=== PATIENT | male | born 1975 | race African-American/Black ===

== ENCOUNTER 2021-04-25 10:27 | Emergency (ER) | payer BC, OTHER ==
[2021-04-25 21:58] LABS: SARS-CoV-2 PCR by NAA Not Detected (NotDetected)
== END 2021-04-25 11:40 | disposition home or self-care (01) ==
LOC: CSHERS 10:27
DX: U07.1 COVID-19 (principal); I10 Essential (primary) hypertension; E78.5 Hyperlipidemia, unspecified; F17.210 Nicotine dependence, cigarettes, uncomplicated; Z79.899 Other long term (current) drug therapy
CPT/HCPCS: 71045; U0003; U0005

== ENCOUNTER 2021-05-12 18:23 | Inpatient (IN) | payer BC ==
[~2021-05-12 18:23] MED LIST: Calcium Chloride 1 GM/10 ML Abboject SYRINGE ONE; EPINEPHrine 1 MG/10 ML Abboject SYRINGE ONE; Sodium Bicarb 50 MEQ/50 ML Abboject 8.4% SYRINGE ONE
[2021-05-12] MEDS ORDERED: EPINEPHrine 1 MG/ML AMP ONE (18:56)
[2021-05-12 19:33] LABS: #Basophils 0.1 10x3/uL (0.0-0.2); #Eosinphils 0.4 10x3/uL (0.0-0.5); #Monocytes 1.6 10x3/uL (0.0-1.1); #Neutrophils 6.7 10x3/uL (1.5-8.4); %Basophils 0.7 % (0.0-2.0); %Eosinophils 3.5 % (0.0-6.0); %Lymphocytes 25.9 % (18.0-47.0); %Monocytes 13.2 % (0.0-10.0); %Neutrophils 55.1 % (40.0-75.0); Hemoglobin 15.9 g/dL (13.5-17.5); Mean Corpuscular HGB CONC 32.1 g/dL (32.0-36.0); Mean Corpuscular Hemoglobin 29.5 pg (27.0-33.0); Mean Platelet Volume 11.7 fl (7.4-10.4); Platelet Count 173 10x3/uL (150-450); RBC Distribution Width 14.3 % (11.5-14.5); Red Blood Cell (RBC) Count 5.39 10x6/uL (4.32-5.72); White Blood Cell (WBC) Count 12.1 10x3/uL (3.5-10.5)
[2021-05-12 19:44] LABS: ALV-art Gradient 591.725 mmHg (0-20); Base Excess (BEa) -0.1 mEq/L (-2.0 to +3.0); CO2 Tension 29.1 mmHg (35.0-45.0); Calcium, Ionized (arterial) 1.33 mmol/L (1.12-1.30); Carboxyhemoglobin (COHb) 0.8 gm% (0.0-3.0); Hemoglobin (Hb) 13.9 g/dL (14.0-18.0); O2 Tension (PaO2), arterial 84.9 mmHg (80.0-100.0); Potassium - ABG Lab 4.3 mmol/L (3.70-5.30); Puncture Site RRA
[2021-05-12] MEDS ORDERED: Midazolam In 0.9 % NaCl/PF 100 ML IVPB SCH (19:45)
[2021-05-12 19:49] LABS: ALT (SGPT) 532 U/L (8-55); AST (SGOT) 434 U/L (5-34); Albumin 3.3 g/dL (3.5-5.0); Alkaline Phosphatase 379 U/L (40-110); Anion Gap 21 mmol/L (10-20); BUN (Urea Nitrogen) 25 mg/dL (8.9-20.6); Bilirubin, Total 3.3 mg/dL (0.2-1.2); Calc. Creatinine Clearance 0 mL/min (70-130); Calcium 8.8 mg/dL (7.8-10.44); Carbon Dioxide 18 mmol/L (22-29); Chloride 101 mmol/L (98-107); Globulin 3.5 g/dL (2.4-3.5); Glucose 124 mg/dL (70-105); Magnesium 2.5 mg/dL (1.6-2.6); Protein, Total 6.8 g/dL (6.0-8.3); Sodium 135 mmol/L (136-145)
[2021-05-12] MEDS ORDERED: levETIRAcetam in NS 200 ML ONE (20:01)
[2021-05-12 20:10] LABS: CKMB 5.9 ng/mL (0-6.6)
[2021-05-12 21:37] LABS: SARS-CoV-2 NAA Rapid Test Not Detected (NotDetected)
[2021-05-12] MEDS ORDERED: Furosemide 100 MG/10 ML VIAL SLOW IVP SCH (22:45)
[2021-05-12 23:31] LABS: Magnesium 2.2 mg/dL (1.6-2.6)
[2021-05-12 23:36] LABS: Troponin I 0.169 ng/mL (< 0.028)
[2021-05-12 23:49] LABS: INR-International Normal Ratio 1.3; PTT 25.9 sec (22.0-33.0); Prothrombin Time 14.7 sec (9.5-12.1)
[2021-05-13] MEDS ORDERED: Hydrocortisone Sod Succ/PF 100 mg/2 ml Vial IVP SCH (00:45)
[2021-05-13] MEDS ORDERED: Fentanyl BOLUS 250 ML IVPB PRN (00:45)
[2021-05-13] MEDS ORDERED: Morphine 2 MG/ML VIAL SLOW IVP PRN (00:45)
[2021-05-13] MEDS ORDERED: Propofol BOLUS 1,000 MG/100 ML VIAL IV PRN (00:45)
[2021-05-13] MEDS ORDERED: Vasopressin 20 UNIT, Admixture Fee 1 EACH in Sodium Chloride 0.9% 50 ML IV SCH (00:45)
[2021-05-13] MEDS ORDERED: Norepinephrine 8 MG/0.9% NS 250 ML IVPB SCH (00:45)
[2021-05-13] MEDS ORDERED: Lorazepam 2 MG/ML VIAL SLOW IVP PRN (00:45)
[2021-05-13] MEDS ORDERED: DISCONTINUE PREVIOUS NARCOTIC PAIN MEDICATIONS AND BENZODIAZEPINES FS SCH (00:45)
[2021-05-13] MEDS: Cefepime 2 GM in Sodium Chloride 0.9% 100 ML IVPB SCH ×4 (00:57→21:39)
[2021-05-13] MEDS: Propofol 1,000 MG/100 ML VIAL IV PRN ×3 (03:00→18:15)
[2021-05-13 03:51] LABS: #Basophils 0.1 10x3/uL (0.0-0.2); #Eosinphils 0.2 10x3/uL (0.0-0.5); #Monocytes 0.6 10x3/uL (0.0-1.1); #Neutrophils 6.9 10x3/uL (1.5-8.4); %Basophils 0.5 % (0.0-2.0); %Eosinophils 2.1 % (0.0-6.0); %Lymphocytes 15.1 % (18.0-47.0); %Neutrophils 74.9 % (40.0-75.0); Hemoglobin 13.8 g/dL (13.5-17.5); Mean Corpuscular HGB CONC 32.9 g/dL (32.0-36.0); Mean Corpuscular Hemoglobin 29.7 pg (27.0-33.0); Mean Corpuscular Volume 90.1 fl (81.2-95.1); Mean Platelet Volume 11.8 fl (7.4-10.4); Platelet Count 198 10x3/uL (150-450); RBC Distribution Width 14.2 % (11.5-14.5); Red Blood Cell (RBC) Count 4.65 10x6/uL (4.32-5.72); White Blood Cell (WBC) Count 9.2 10x3/uL (3.5-10.5)
[2021-05-13 03:59] LABS: Lactic Acid 1.7 mmol/L (0.5-2.2)
[2021-05-13 04:02] LABS: Anion Gap 15 mmol/L (10-20); BUN (Urea Nitrogen) 27 mg/dL (8.9-20.6); Calc. Creatinine Clearance 116 mL/min (70-130); Calcium 9.1 mg/dL (7.8-10.44); Carbon Dioxide 29 mmol/L (22-29); Chloride 98 mmol/L (98-107); Glucose 207 mg/dL (70-105); Potassium 4.2 mmol/L (3.5-5.1); Sodium 138 mmol/L (136-145)
[2021-05-13] MEDS ORDERED: FLU VACC QS2021-22(6MOS UP)/PF 60 MCG/0.5 ML SYRINGE IM ONE (04:30)
[2021-05-13 04:40] LABS: ALV-art Gradient 368.275 mmHg (0-20); Actual Bicarbonate (HCO3a) 26.2 mEq/L (22-28); Base Excess (BEa) 3.5 mEq/L (-2.0 to +3.0); CO2 Tension 33.7 mmHg (35.0-45.0); Calcium, Ionized (arterial) 1.09 mmol/L (1.12-1.30); Carboxyhemoglobin (COHb) 0.6 gm% (0.0-3.0); Hemoglobin (Hb) 14.5 g/dL (14.0-18.0); Potassium - ABG Lab 3.9 mmol/L (3.70-5.30); Puncture Site RRA; pH, Arterial 7.51 (7.35-7.45)
[2021-05-13] MEDS: fentaNYL Citrate-0.9 % NaCl/PF 100 ML IVPB SCH ×2 (05:11→18:15)
[2021-05-13] MEDS ORDERED: Furosemide 100 MG/10 ML VIAL SLOW IVP SCH ×2 (06:00→07:00)
[2021-05-13] MEDS: Enoxaparin Sodium 120 MG/0.8 ML SYRINGE SC SCH ×3 (07:43→21:39)
[2021-05-13] MEDS: Hydrocortisone Sod Succ/PF 100 mg/2 ml Vial IVP SCH ×3 (07:43→18:07)
[2021-05-13 07:47] LABS: ALT (SGPT) 486 U/L (8-55); AST (SGOT) 370 U/L (5-34); Alkaline Phosphatase 317 U/L (40-110); Bilirubin, Direct 1.8 mg/dL (0.1-0.3); Bilirubin, Total 3.9 mg/dL (0.2-1.2); Protein, Total 5.7 g/dL (6.0-8.3)
[2021-05-13] MEDS ORDERED: Enoxaparin Sodium 80 MG/0.8 ML SYRINGE SC SCH (09:00)
[2021-05-13] MEDS ORDERED: Furosemide 100 MG in Sodium Chloride 0.9% 100 ML IVPB SCH (09:00)
[2021-05-13] MEDS ORDERED: levETIRAcetam 500 MG in Sodium Chloride 0.9% 100 ML IVPB SCH (09:00)
[2021-05-13] MEDS ORDERED: Furosemide 40 MG/4 ML VIAL SLOW IVP SCH (09:00)
[2021-05-13] MEDS ORDERED: Sodium Chloride 0.9% 100 ML ONE (09:10)
[2021-05-13 10:10] LABS: Troponin I 0.114 ng/mL (< 0.028)
[2021-05-13] MEDS ORDERED: VANCOMYCIN 2 GRAM/400 ML BAG 2 GM in Premix Bag 1 BAG IVPB SCH (11:30)
[2021-05-13 11:58] LABS: Acetaminophen Less than 6.0 mcg/mL (10.0-30.0); Alcohol Less than 10 mg/dL (Less than 10); Salicylate Less than 8.0 mg/dL (15.0-30.0)
[2021-05-13 12:16] LABS: Thyroid Stimulating Hormone 0.903 uIU/mL (0.35-4.94)
[2021-05-13 12:17] LABS: Syphilis Antibody Nonreactive (Nonreactive); Syphilis Antibody Index 0.04 S/CO (<1.00 Non-Reactive)
[2021-05-13 15:05] LABS: Amphetamine Not Detected (NotDetected); Barbiturates Screen Not Detected (NotDetected); Benzodiazepine Screen Not Detected (NotDetected); Cocaine Metabolite Screen Not Detected (NotDetected); Legionella Urinary Ag Negative (Negative); Methadone Not Detected (NotDetected); Methamphetamine Not Detected (NotDetected); Opiate Screen Not Detected (NotDetected); Oxycodone Screen Not Detected (NotDetected); Phencyclidine (PCP) Not Detected (NotDetected); Strep pneumo Urine Ag NEGATIVE (NEGATIVE); THC/Cannabinoid Screen Not Detected (NotDetected); Tricyclic Screen Not Detected (NotDetected)
[2021-05-13] MEDS: Furosemide 40 MG/4 ML VIAL SLOW IVP SCH (21:40)
[2021-05-13] MEDS: Famotidine 20 MG TAB PER TUBE SCH (21:40)
[2021-05-13] MEDS: Vancomycin 1.5 GRAM/300 ML BAG 1.5 GM in Premix Bag 1 BAG IVPB SCH (23:30)
[2021-05-14] MEDS: Hydrocortisone Sod Succ/PF 100 mg/2 ml Vial IVP SCH ×5 (00:03→23:59)
[2021-05-14] MEDS: Propofol 1,000 MG/100 ML VIAL IV PRN ×5 (01:19→22:34)
[2021-05-14] MEDS ORDERED: Metoprolol Tartrate 5 MG/5 ML VIAL IVP SCH ×2 (04:15→14:45)
[2021-05-14 04:33] LABS: #Monocytes 1.4 10x3/uL (0.0-1.1); #Neutrophils 10.8 10x3/uL (1.5-8.4); %Basophils 0.2 % (0.0-2.0); %Lymphocytes 5.5 % (18.0-47.0); %Monocytes 10.7 % (0.0-10.0); %Neutrophils 83.1 % (40.0-75.0); Hemoglobin 13.6 g/dL (13.5-17.5); Mean Corpuscular Hemoglobin 29.9 pg (27.0-33.0); Mean Corpuscular Volume 93.4 fl (81.2-95.1); Mean Platelet Volume 11.2 fl (7.4-10.4); Platelet Count 210 10x3/uL (150-450); RBC Distribution Width 14.5 % (11.5-14.5); Red Blood Cell (RBC) Count 4.55 10x6/uL (4.32-5.72)
[2021-05-14 04:53] LABS: ALT (SGPT) 355 U/L (8-55); AST (SGOT) 119 U/L (5-34); Albumin 2.8 g/dL (3.5-5.0); Alkaline Phosphatase 243 U/L (40-110); Anion Gap 14 mmol/L (10-20); BUN (Urea Nitrogen) 23 mg/dL (8.9-20.6); Bilirubin, Total 2.1 mg/dL (0.2-1.2); Calc. Creatinine Clearance 125 mL/min (70-130); Calcium 8.4 mg/dL (7.8-10.44); Carbon Dioxide 33 mmol/L (22-29); Chloride 103 mmol/L (98-107); Globulin 3.2 g/dL (2.4-3.5); Glucose 139 mg/dL (70-105); Magnesium 2.2 mg/dL (1.6-2.6); Phosphorus 4.8 mg/dL (2.3-4.7); Potassium 3.6 mmol/L (3.5-5.1); Sodium 146 mmol/L (136-145)
[2021-05-14 04:59] LABS: Troponin I 0.054 ng/mL (< 0.028)
[2021-05-14] MEDS: Cefepime 2 GM in Sodium Chloride 0.9% 100 ML IVPB SCH ×3 (05:25→20:40)
[2021-05-14] MEDS: fentaNYL Citrate-0.9 % NaCl/PF 100 ML IVPB SCH (05:57)
[2021-05-14] MEDS ORDERED: Diltiazem 125 MG in Sodium Chloride 0.9% 100 ML IVPB SCH ×2 (08:45→09:30)
[2021-05-14] MEDS: Enoxaparin Sodium 120 MG/0.8 ML SYRINGE SC SCH ×2 (09:02→20:40)
[2021-05-14] MEDS: Famotidine 20 MG TAB PER TUBE SCH ×2 (09:03→20:40)
[2021-05-14] MEDS: Furosemide 40 MG/4 ML VIAL SLOW IVP SCH ×2 (09:03→20:40)
[2021-05-14] MEDS ORDERED: Potassium Chloride 20 MEQ TAB PO SCH (10:30)
[2021-05-14] MEDS ORDERED: Carvedilol 6.25 MG TAB PO SCH (10:30)
[2021-05-14] MEDS ORDERED: Potassium Bicarbonate/Cit Ac 20 MEQ TAB PO SCH (10:45)
[2021-05-14] MEDS: Vancomycin 1.5 GRAM/300 ML BAG 1.5 GM in Premix Bag 1 BAG IVPB SCH (10:56)
[2021-05-14 12:42] LABS: Hep C IgG Ab Non-Reactive (NonReactive); Hep C Index 0.18 S/CO (0-0.79)
[2021-05-14 15:30] LABS: SARS-CoV-2 PCR by NAA Not Detected (NotDetected)
[2021-05-14] MEDS ORDERED: Digoxin 0.5 MG/2 ML AMP SLOW IVP SCH (16:30)
[2021-05-14] MEDS: Carvedilol 6.25 MG TAB PO SCH (17:07)
[2021-05-14] MEDS ORDERED: Metoprolol Tartrate 5 MG/5 ML VIAL IVP PRN (20:59)
[2021-05-14 22:56] LABS: Vancomycin, Trough 10.4 ug/mL
[2021-05-15] MEDS: Vancomycin 1.5 GRAM/300 ML BAG 1.5 GM in Premix Bag 1 BAG IVPB SCH
[2021-05-15] MEDS: Propofol 1,000 MG/100 ML VIAL IV PRN ×2 (02:30→07:18)
[2021-05-15 03:40] LABS: #Monocytes 1.2 10x3/uL (0.0-1.1); #Neutrophils 8.8 10x3/uL (1.5-8.4); %Basophils 0.1 % (0.0-2.0); %Lymphocytes 8.7 % (18.0-47.0); %Monocytes 11.1 % (0.0-10.0); %Neutrophils 79.8 % (40.0-75.0); Hemoglobin 13.5 g/dL (13.5-17.5); Mean Corpuscular HGB CONC 31.9 g/dL (32.0-36.0); Mean Corpuscular Hemoglobin 29.9 pg (27.0-33.0); Mean Corpuscular Volume 93.8 fl (81.2-95.1); Mean Platelet Volume 10.8 fl (7.4-10.4); Platelet Count 205 10x3/uL (150-450); RBC Distribution Width 14.6 % (11.5-14.5); Red Blood Cell (RBC) Count 4.51 10x6/uL (4.32-5.72)
[2021-05-15 04:04] LABS: ALT (SGPT) 251 U/L (8-55); AST (SGOT) 60 U/L (5-34); Albumin 2.9 g/dL (3.5-5.0); Alkaline Phosphatase 220 U/L (40-110); Anion Gap 14 mmol/L (10-20); BUN (Urea Nitrogen) 23 mg/dL (8.9-20.6); Bilirubin, Total 1.5 mg/dL (0.2-1.2); Calc. Creatinine Clearance 132 mL/min (70-130); Calcium 8.3 mg/dL (7.8-10.44); Carbon Dioxide 34 mmol/L (22-29); Chloride 101 mmol/L (98-107); Globulin 3.2 g/dL (2.4-3.5); Glucose 149 mg/dL (70-105); Magnesium 2.4 mg/dL (1.6-2.6); Phosphorus 3.3 mg/dL (2.3-4.7); Potassium 3.1 mmol/L (3.5-5.1); Protein, Total 6.1 g/dL (6.0-8.3); Sodium 146 mmol/L (136-145)
[2021-05-15] MEDS: Hydrocortisone Sod Succ/PF 100 mg/2 ml Vial IVP SCH ×4 (05:34→23:52)
[2021-05-15] MEDS: Cefepime 2 GM in Sodium Chloride 0.9% 100 ML IVPB SCH ×3 (05:34→21:24)
[2021-05-15] MEDS ORDERED: Potassium Chloride 20 MEQ TAB PO SCH (06:15)
[2021-05-15] MEDS: Carvedilol 6.25 MG TAB PO SCH (07:41)
[2021-05-15] MEDS: Furosemide 40 MG/4 ML VIAL SLOW IVP SCH ×2 (07:42→21:24)
[2021-05-15] MEDS: Famotidine 20 MG TAB PER TUBE SCH ×2 (07:42→21:23)
[2021-05-15] MEDS: Enoxaparin Sodium 120 MG/0.8 ML SYRINGE SC SCH ×2 (07:42→21:23)
[2021-05-15] MEDS: Potassium Bicarbonate/Cit Ac 20 MEQ TAB PO SCH ×2 (07:46→07:47)
[2021-05-15 09:11] LABS: Actual Bicarbonate (HCO3a) 35.4 mEq/L (22-28); Base Excess (BEa) 10.5 mEq/L (-2.0 to +3.0); CO2 Tension 47.1 mmHg (35.0-45.0); Calcium, Ionized (arterial) 1.09 mmol/L (1.12-1.30); Carboxyhemoglobin (COHb) 0.5 gm% (0.0-3.0); Hemoglobin (Hb) 15.3 g/dL (14.0-18.0); O2 Tension (PaO2), arterial 94.1 mmHg (80.0-100.0); Potassium - ABG Lab 3.9 mmol/L (3.70-5.30); Puncture Site RRA; pH, Arterial 7.49 (7.35-7.45)
[2021-05-15 09:16] LABS: ALV-art Gradient 60.925 mmHg (0-20)
[2021-05-15] MEDS ORDERED: Digoxin 0.5 MG/2 ML AMP SLOW IVP SCH ×3 (09:30→13:30)
[2021-05-15] MEDS: VANCOMYCIN 2 GRAM/400 ML BAG 2 GM in Premix Bag 1 BAG IVPB SCH ×2 (12:23→23:50)
[2021-05-15] MEDS: Dexmedetomidine In 0.9 % NaCl 400 MCG in Premix Bag 1 BAG IVPB SCH ×3 (12:31→21:24)
[2021-05-15] MEDS ORDERED: hydrALAZINE 20 MG/ML VIAL SLOW IVP SCH (15:00)
[2021-05-15] MEDS: Carvedilol 12.5 MG TAB PO SCH (15:30)
[2021-05-15] MEDS ORDERED: hydrALAZINE 20 MG/ML VIAL SLOW IVP PRN (15:33)
[2021-05-15] MEDS ORDERED: Morphine 4 MG/ML VIAL SLOW IVP PRN (23:54)
[2021-05-16] MEDS: Dexmedetomidine In 0.9 % NaCl 400 MCG in Premix Bag 1 BAG IVPB SCH ×2 (01:59→06:24)
[2021-05-16 04:52] LABS: #Monocytes 1.3 10x3/uL (0.0-1.1); #Neutrophils 7.5 10x3/uL (1.5-8.4); %Basophils 0.2 % (0.0-2.0); %Lymphocytes 11.6 % (18.0-47.0); %Monocytes 12.9 % (0.0-10.0); %Neutrophils 74.9 % (40.0-75.0); Hemoglobin 15.6 g/dL (13.5-17.5); Mean Corpuscular HGB CONC 31.4 g/dL (32.0-36.0); Mean Corpuscular Hemoglobin 29.4 pg (27.0-33.0); Mean Corpuscular Volume 93.6 fl (81.2-95.1); Mean Platelet Volume 10.6 fl (7.4-10.4); Platelet Count 221 10x3/uL (150-450); RBC Distribution Width 13.3 % (11.5-14.5); Red Blood Cell (RBC) Count 5.31 10x6/uL (4.32-5.72)
[2021-05-16] MEDS: Hydrocortisone Sod Succ/PF 100 mg/2 ml Vial IVP SCH ×3 (05:17→21:25)
[2021-05-16] MEDS: Cefepime 2 GM in Sodium Chloride 0.9% 100 ML IVPB SCH (05:17)
[2021-05-16 05:28] LABS: ALT (SGPT) 202 U/L (8-55); AST (SGOT) 47 U/L (5-34); Albumin 3.2 g/dL (3.5-5.0); Alkaline Phosphatase 223 U/L (40-110); Anion Gap 15 mmol/L (10-20); BUN (Urea Nitrogen) 20 mg/dL (8.9-20.6); Bilirubin, Total 2.2 mg/dL (0.2-1.2); Calc. Creatinine Clearance 138 mL/min (70-130); Calcium 8.6 mg/dL (7.8-10.44); Carbon Dioxide 34 mmol/L (22-29); Chloride 103 mmol/L (98-107); Glucose 192 mg/dL (70-105); Magnesium 2.3 mg/dL (1.6-2.6); Phosphorus 2.1 mg/dL (2.3-4.7); Potassium 2.9 mmol/L (3.5-5.1); Protein, Total 7.2 g/dL (6.0-8.3); Sodium 149 mmol/L (136-145)
[2021-05-16] MEDS: Potassium Bicarbonate/Cit Ac 20 MEQ TAB PER TUBE SCH ×2 (06:02→09:41)
[2021-05-16] MEDS: Furosemide 40 MG/4 ML VIAL SLOW IVP SCH ×2 (08:57→21:25)
[2021-05-16] MEDS: Enoxaparin Sodium 120 MG/0.8 ML SYRINGE SC SCH ×2 (08:57→21:26)
[2021-05-16] MEDS: Famotidine 20 MG TAB PER TUBE SCH ×2 (08:58→21:25)
[2021-05-16] MEDS: Carvedilol 25 MG TAB PO SCH ×2 (08:59→16:05)
[2021-05-16] MEDS: Sacubitril 49 MG/Valsartan 51 MG TABLET PO SCH ×2 (08:59→21:25)
[2021-05-16] MEDS: Potassium Chloride 40 MEQ in Premix Bag 1 BAG IVPB SCH ×2 (08:59→09:36)
[2021-05-16] MEDS ORDERED: Digoxin 0.125 MG TAB PO SCH (10:00)
[2021-05-16 11:13] LABS: Hep B Surface AG-Rflx Sendout Negative (Negative); Hepatitis B Core Total Negative (Negative); Hepatitis B Surface AB-Sendout Non Reactive (.)
[2021-05-17 06:29] LABS: #Monocytes 0.9 10x3/uL (0.0-1.1); #Neutrophils 7.7 10x3/uL (1.5-8.4); %Basophils 0.1 % (0.0-2.0); %Lymphocytes 12.6 % (18.0-47.0); %Monocytes 9.2 % (0.0-10.0); %Neutrophils 77.7 % (40.0-75.0); Mean Corpuscular HGB CONC 31.4 g/dL (32.0-36.0); Mean Corpuscular Volume 92.3 fl (81.2-95.1); Mean Platelet Volume 11.1 fl (7.4-10.4); Platelet Count 220 10x3/uL (150-450); RBC Distribution Width 13.2 % (11.5-14.5); Red Blood Cell (RBC) Count 5.17 10x6/uL (4.32-5.72); White Blood Cell (WBC) Count 9.9 10x3/uL (3.5-10.5)
[2021-05-17 07:00] LABS: ALT (SGPT) 149 U/L (8-55); AST (SGOT) 46 U/L (5-34); Albumin 2.8 g/dL (3.5-5.0); Alkaline Phosphatase 169 U/L (40-110); Anion Gap 13 mmol/L (10-20); BUN (Urea Nitrogen) 23 mg/dL (8.9-20.6); Calc. Creatinine Clearance 176 mL/min (70-130); Calcium 8.3 mg/dL (7.8-10.44); Carbon Dioxide 36 mmol/L (22-29); Chloride 96 mmol/L (98-107); Globulin 3.5 g/dL (2.4-3.5); Glucose 146 mg/dL (70-105); Magnesium 2.3 mg/dL (1.6-2.6); Phosphorus 3.1 mg/dL (2.3-4.7); Potassium 2.6 mmol/L (3.5-5.1); Protein, Total 6.3 g/dL (6.0-8.3); Sodium 142 mmol/L (136-145)
[2021-05-17] MEDS ORDERED: Potassium Chloride 20 MEQ TAB PO SCH ×4 (07:30→15:00)
[2021-05-17] MEDS ORDERED: Electrolyte Replacement Protocol FS PRN (07:30)
[2021-05-17] MEDS ORDERED: ALPRAZolam 0.25 MG TAB PO PRN (07:45)
[2021-05-17] MEDS ORDERED: Communication Order-Pharmacy FS SCH (08:00)
[2021-05-17] MEDS: Hydrocortisone Sod Succ/PF 100 mg/2 ml Vial IVP SCH ×2 (09:03→21:18)
[2021-05-17] MEDS: Enoxaparin Sodium 120 MG/0.8 ML SYRINGE SC SCH (09:04)
[2021-05-17] MEDS: Furosemide 40 MG/4 ML VIAL SLOW IVP SCH ×2 (09:04→21:18)
[2021-05-17] MEDS: Carvedilol 25 MG TAB PO SCH ×2 (09:04→16:35)
[2021-05-17] MEDS: Famotidine 20 MG TAB PER TUBE SCH ×2 (09:05→21:18)
[2021-05-17] MEDS: Potassium Chloride 20 MEQ TAB PO SCH ×2 (09:05→16:35)
[2021-05-17] MEDS: Digoxin 0.125 MG TAB PO SCH (09:05)
[2021-05-17] MEDS: Potassium Chloride 40 MEQ in Premix Bag 1 BAG IVPB SCH ×2 (09:06→09:53)
[2021-05-17] MEDS: Sacubitril 49 MG/Valsartan 51 MG TABLET PO SCH ×2 (09:06→21:18)
[2021-05-17 13:39] LABS: Potassium 3.1 mmol/L (3.5-5.1)
[2021-05-18 03:35] LABS: #Monocytes 0.7 10x3/uL (0.0-1.1); #Neutrophils 7.4 10x3/uL (1.5-8.4); %Basophils 0.1 % (0.0-2.0); %Eosinophils 0.1 % (0.0-6.0); %Lymphocytes 12.6 % (18.0-47.0); %Monocytes 7.8 % (0.0-10.0); %Neutrophils 79.1 % (40.0-75.0); Hemoglobin 15.1 g/dL (13.5-17.5); Mean Corpuscular Hemoglobin 29.1 pg (27.0-33.0); Mean Corpuscular Volume 90.9 fl (81.2-95.1); Mean Platelet Volume 10.7 fl (7.4-10.4); Platelet Count 204 10x3/uL (150-450); RBC Distribution Width 12.7 % (11.5-14.5); Red Blood Cell (RBC) Count 5.19 10x6/uL (4.32-5.72); White Blood Cell (WBC) Count 9.4 10x3/uL (3.5-10.5)
[2021-05-18 04:13] LABS: INR-International Normal Ratio 1.2; PTT 29.3 sec (22.0-33.0); Prothrombin Time 13.3 sec (9.5-12.1)
[2021-05-18 04:18] LABS: ALT (SGPT) 112 U/L (8-55); AST (SGOT) 33 U/L (5-34); Albumin 2.7 g/dL (3.5-5.0); Alkaline Phosphatase 146 U/L (40-110); Anion Gap 11 mmol/L (10-20); BUN (Urea Nitrogen) 22 mg/dL (8.9-20.6); Bilirubin, Total 1.3 mg/dL (0.2-1.2); Calc. Creatinine Clearance 176 mL/min (70-130); Calcium 8.1 mg/dL (7.8-10.44); Carbon Dioxide 33 mmol/L (22-29); Chloride 97 mmol/L (98-107); Globulin 3.6 g/dL (2.4-3.5); Glucose 171 mg/dL (70-105); Magnesium 2.1 mg/dL (1.6-2.6); Phosphorus 2.9 mg/dL (2.3-4.7); Potassium 3.2 mmol/L (3.5-5.1); Protein, Total 6.3 g/dL (6.0-8.3); Sodium 138 mmol/L (136-145)
[2021-05-18] MEDS ORDERED: Potassium Chloride 40 MEQ in Premix Bag 1 BAG IVPB SCH (06:00)
[2021-05-18] MEDS ORDERED: Nitroglycerin 50 MG/250 ML BOT 250 ML ONE (07:25)
[2021-05-18] MEDS ORDERED: Heparin 10,000 UNITS/ 10 ML VIAL ONE (07:26)
[2021-05-18] MEDS ORDERED: Verapamil 5 MG/2 ML VIAL ONE (07:26)
[2021-05-18] MEDS ORDERED: Adenosine 6 MG/2 ML VIAL ONE (07:27)
[2021-05-18] MEDS ORDERED: Bivalirudin 250 MG VIAL ONE (07:27)
[2021-05-18] MEDS ORDERED: Lidocaine 1% PF 5 ML VIAL ONE (07:51)
[2021-05-18] MEDS: Hydrocortisone Sod Succ/PF 100 mg/2 ml Vial IVP SCH (07:52)
[2021-05-18] MEDS: Furosemide 40 MG/4 ML VIAL SLOW IVP SCH ×2 (07:52→20:44)
[2021-05-18] MEDS: Carvedilol 25 MG TAB PO SCH ×2 (07:52→17:04)
[2021-05-18] MEDS ORDERED: Lidocaine 1% (PF) 30 ML VIAL ONE (07:52)
[2021-05-18] MEDS ORDERED: Midazolam HCl 5 mg/5 ml Vial ONE (08:25)
[2021-05-18] MEDS ORDERED: Fentanyl 100 MCG/2 ML VIAL ONE (08:27)
[2021-05-18] MEDS ORDERED: Sodium Chloride 0.9% 200 ML IV PRN (08:54)
[2021-05-18] MEDS ORDERED: Acetaminophen/Codeine 30-300mg Tablet PO PRN ×2 (08:54)
[2021-05-18] MEDS ORDERED: Nitroglycerin 0.4 MG TAB (25 Tab Bottle) SL PRN (08:54)
[2021-05-18] MEDS: Sacubitril 49 MG/Valsartan 51 MG TABLET PO SCH ×2 (09:43→20:44)
[2021-05-18] MEDS: Potassium Chloride 20 MEQ TAB PO SCH ×2 (10:02→17:04)
[2021-05-18] MEDS: Famotidine 20 MG TAB PER TUBE SCH ×2 (10:03→20:44)
[2021-05-18] MEDS: Digoxin 0.125 MG TAB PO SCH (10:03)
[2021-05-18 10:42] LABS: Potassium 2.2 mmol/L (3.5-5.1)
[2021-05-18] MEDS ORDERED: Spironolactone 25 MG TAB PO SCH (11:00)
[2021-05-18 11:06] LABS: Potassium 3.5 mmol/L (3.5-5.1)
[2021-05-18] MEDS: Potassium Chloride 40 MEQ in Premix Bag 1 BAG IVPB SCH ×2 (11:07→17:03)
[2021-05-18] MEDS: Carvedilol 12.5 MG TAB PO SCH (11:59)
[2021-05-18 15:53] LABS: Potassium 3.7 mmol/L (3.5-5.1)
[2021-05-19 03:36] LABS: #Eosinphils 0.1 10x3/uL (0.0-0.5); #Monocytes 0.7 10x3/uL (0.0-1.1); #Neutrophils 6.6 10x3/uL (1.5-8.4); %Basophils 0.1 % (0.0-2.0); %Eosinophils 0.5 % (0.0-6.0); %Lymphocytes 22.1 % (18.0-47.0); %Monocytes 7.7 % (0.0-10.0); %Neutrophils 69.4 % (40.0-75.0); Hemoglobin 13.8 g/dL (13.5-17.5); Mean Corpuscular HGB CONC 31.8 g/dL (32.0-36.0); Mean Corpuscular Hemoglobin 29.1 pg (27.0-33.0); Mean Corpuscular Volume 91.6 fl (81.2-95.1); Mean Platelet Volume 10.8 fl (7.4-10.4); Platelet Count 194 10x3/uL (150-450); RBC Distribution Width 12.6 % (11.5-14.5); Red Blood Cell (RBC) Count 4.74 10x6/uL (4.32-5.72); White Blood Cell (WBC) Count 9.6 10x3/uL (3.5-10.5)
[2021-05-19 03:54] LABS: ALT (SGPT) 120 U/L (8-55); AST (SGOT) 68 U/L (5-34); Albumin 2.6 g/dL (3.5-5.0); Alkaline Phosphatase 124 U/L (40-110); Anion Gap 11 mmol/L (10-20); BUN (Urea Nitrogen) 23 mg/dL (8.9-20.6); Bilirubin, Total 1.1 mg/dL (0.2-1.2); Calc. Creatinine Clearance 181 mL/min (70-130); Carbon Dioxide 31 mmol/L (22-29); Chloride 99 mmol/L (98-107); Globulin 3.3 g/dL (2.4-3.5); Glucose 166 mg/dL (70-105); Magnesium 2.1 mg/dL (1.6-2.6); Potassium 3.5 mmol/L (3.5-5.1); Protein, Total 5.9 g/dL (6.0-8.3); Sodium 137 mmol/L (136-145)
[2021-05-19 04:58] VITALS: BMI 34.2
[2021-05-19] MEDS ORDERED: Potassium Phosphate 15 MMOL in Sodium Chloride 0.9% 100 ML IVPB SCH (05:45)
[2021-05-19] MEDS ORDERED: Sodium Chloride 0.9% 250 ML IV SCH (05:45)
[2021-05-19] MEDS: Furosemide 40 MG/4 ML VIAL SLOW IVP SCH ×2 (07:50→21:52)
[2021-05-19] MEDS: Potassium Chloride 20 MEQ TAB PO SCH ×2 (07:56→17:20)
[2021-05-19] MEDS: Famotidine 20 MG TAB PER TUBE SCH ×2 (07:57→21:52)
[2021-05-19] MEDS: Digoxin 0.125 MG TAB PO SCH (07:57)
[2021-05-19] MEDS: Spironolactone 25 MG TAB PO SCH (07:57)
[2021-05-19] MEDS: Carvedilol 25 MG TAB PO SCH ×2 (07:57→17:20)
[2021-05-19] MEDS ORDERED: Digoxin 0.125 MG TAB PO SCH (09:00)
[2021-05-19] MEDS ORDERED: Apixaban 5 MG TAB PO SCH (09:15)
[2021-05-19 18:23] LABS: SARS-CoV-2 PCR by NAA Not Detected (NotDetected)
[2021-05-19] MEDS: Apixaban 5 MG TAB PO SCH (21:52)
[2021-05-20 05:29] LABS: #Eosinphils 0.2 10x3/uL (0.0-0.5); #Monocytes 0.8 10x3/uL (0.0-1.1); #Neutrophils 5.9 10x3/uL (1.5-8.4); %Basophils 0.2 % (0.0-2.0); %Eosinophils 1.9 % (0.0-6.0); %Lymphocytes 20.5 % (18.0-47.0); %Monocytes 9.5 % (0.0-10.0); %Neutrophils 67.6 % (40.0-75.0); Hemoglobin 13.9 g/dL (13.5-17.5); Mean Corpuscular HGB CONC 32.6 g/dL (32.0-36.0); Mean Corpuscular Hemoglobin 29.4 pg (27.0-33.0); Mean Corpuscular Volume 90.1 fl (81.2-95.1); Mean Platelet Volume 11.7 fl (7.4-10.4); Platelet Count 205 10x3/uL (150-450); RBC Distribution Width 12.6 % (11.5-14.5); Red Blood Cell (RBC) Count 4.73 10x6/uL (4.32-5.72); White Blood Cell (WBC) Count 8.8 10x3/uL (3.5-10.5)
[2021-05-20 05:55] LABS: ALT (SGPT) 143 U/L (8-55); AST (SGOT) 78 U/L (5-34); Albumin 2.6 g/dL (3.5-5.0); Alkaline Phosphatase 133 U/L (40-110); Anion Gap 11 mmol/L (10-20); BUN (Urea Nitrogen) 20 mg/dL (8.9-20.6); Bilirubin, Total 0.7 mg/dL (0.2-1.2); Calc. Creatinine Clearance 171 mL/min (70-130); Calcium 8.1 mg/dL (7.8-10.44); Carbon Dioxide 29 mmol/L (22-29); Chloride 100 mmol/L (98-107); Globulin 3.2 g/dL (2.4-3.5); Glucose 221 mg/dL (70-105); Magnesium 1.9 mg/dL (1.6-2.6); Phosphorus 2.5 mg/dL (2.3-4.7); Potassium 3.7 mmol/L (3.5-5.1); Protein, Total 5.8 g/dL (6.0-8.3); Sodium 136 mmol/L (136-145)
[2021-05-20] MEDS ORDERED: Magnesium 2 GM/50 ML 2 GM in Premix Bag 1 BAG IVPB SCH (06:30)
[2021-05-20] MEDS: Spironolactone 25 MG TAB PO SCH (09:00)
[2021-05-20] MEDS: Digoxin 0.25 MG TAB PO SCH (09:00)
[2021-05-20] MEDS: Famotidine 20 MG TAB PER TUBE SCH ×2 (09:00→20:09)
[2021-05-20] MEDS: Potassium Chloride 20 MEQ TAB PO SCH ×2 (09:00→18:11)
[2021-05-20] MEDS: Apixaban 5 MG TAB PO SCH ×2 (09:01→20:09)
[2021-05-20] MEDS: Furosemide 40 MG/4 ML VIAL SLOW IVP SCH (09:01)
[2021-05-20] MEDS: Carvedilol 25 MG TAB PO SCH ×2 (09:01→18:11)
[2021-05-20] MEDS ORDERED: Potassium Chloride 20 MEQ TAB PO SCH (10:45)
[2021-05-20] MEDS: Furosemide 40 MG TAB PO SCH (14:33)
[2021-05-21] MEDS: Famotidine 20 MG TAB PER TUBE SCH (08:45)
[2021-05-21] MEDS: Apixaban 5 MG TAB PO SCH (08:45)
[2021-05-21] MEDS: Carvedilol 25 MG TAB PO SCH (08:46)
[2021-05-21] MEDS: Potassium Chloride 20 MEQ TAB PO SCH (08:50)
[2021-05-21] MEDS: Spironolactone 25 MG TAB PO SCH (08:50)
[2021-05-21] MEDS: Furosemide 40 MG TAB PO SCH ×2 (08:50→14:41)
[2021-05-21] MEDS: Digoxin 0.25 MG TAB PO SCH (08:51)
[2021-05-21] MEDS ORDERED: Magnesium Oxide 400 MG TAB PO SCH (09:00)
[2021-05-21 09:56] LABS: Anion Gap 9 mmol/L (10-20); BUN (Urea Nitrogen) 17 mg/dL (8.9-20.6); Calc. Creatinine Clearance 190 mL/min (70-130); Calcium 8.2 mg/dL (7.8-10.44); Carbon Dioxide 27 mmol/L (22-29); Chloride 104 mmol/L (98-107); Glucose 209 mg/dL (70-105); Magnesium 1.8 mg/dL (1.6-2.6); Potassium 4.3 mmol/L (3.5-5.1); Sodium 136 mmol/L (136-145)
[2021-05-21 11:58] VITALS: TEMP 98.6
[2021-05-21] MEDS ORDERED: Magnesium 2 GM/50 ML 2 GM in Premix Bag 1 BAG IVPB SCH (12:00)
[2021-05-21 13:11] VITALS: BP 104/68
== END 2021-05-21 15:20 | disposition home or self-care (01) | DRG 286 ==
LOC: CSHERS 18:23 → CSHICU 22:17 → CSHTELE 05-20 01:22
PROVIDERS: ADMIT Family Medicine; ATTEND Internal Medicine
PROC: 0BH18EZ Insertion of Endotracheal Airway into Trachea, Via Natural or Artificial Opening Endoscopic (ICD-10-PCS; 2021-05-12)
PROC: 5A1945Z Respiratory Ventilation, 24-96 Consecutive Hours (ICD-10-PCS; 2021-05-12)
PROC: 3E033XZ Introduction of Vasopressor into Peripheral Vein, Percutaneous Approach (ICD-10-PCS; 2021-05-13)
PROC: 02HV33Z Insertion of Infusion Device into Superior Vena Cava, Percutaneous Approach (ICD-10-PCS; 2021-05-13)
PROC: B548ZZA Ultrasonography of Superior Vena Cava, Guidance (ICD-10-PCS; 2021-05-13)
PROC: 4A023N7 Measurement of Cardiac Sampling and Pressure, Left Heart, Percutaneous Approach (ICD-10-PCS; principal; 2021-05-18)
PROC: B2111ZZ Fluoroscopy of Multiple Coronary Arteries using Low Osmolar Contrast (ICD-10-PCS; 2021-05-18)
PROC: B2151ZZ Fluoroscopy of Left Heart using Low Osmolar Contrast (ICD-10-PCS; 2021-05-18)
DX: I48.19 Other persistent atrial fibrillation (principal); J96.01 Acute respiratory failure with hypoxia; R57.0 Cardiogenic shock; J15.6 Pneumonia due to other Gram-negative bacteria; Z20.822 Contact with and (suspected) exposure to COVID-19; I50.21 Acute systolic (congestive) heart failure; N17.0 Acute kidney failure with tubular necrosis; I46.2 Cardiac arrest due to underlying cardiac condition; I42.8 Other cardiomyopathies; I11.0 Hypertensive heart disease with heart failure; R74.8 Abnormal levels of other serum enzymes; E87.6 Hypokalemia; Z79.01 Long term (current) use of anticoagulants
CPT/HCPCS: 31500; 36415; 36416; 36600; 70450; 71045; 71275; 76700; 80048; 80053; 80076; 80143; 80179; 80202; 80306; 80307; 82140; 82553; 82607; 82746; 82805; 83605; 83735; 83880; 84100; 84443; 84484; 85025; 85610; 85730; 86704; 86705; 86706; 86707; 86780; 86803; 87040; 87070; 87081; 87205; 87340; 87350; 87449; 87899; 93005; 93010; 93306; 93458; 93970; 94002; 94003; 94760; 96374; 96375; 97139; 99152; 99292; J0153; J0171; J0360; J0583; J0692; J1160; J1644; J1650; J1720; J1940; J1953; J1956; J2001; J2250; J2270; J2704; J2997; J3010; J3370; J3475; J3480; J3490; J7030; U0002; U0003; U0005